=== PATIENT | female | born 1995 | race Two or more races ===

== ENCOUNTER 2025-02-21 | Inpatient (IN) | payer MEDICAID ==
[~2025-02-21] VITALS: Ht 198.1 cm; Wt 111.8 kg
--- NOTE | 2025-02-21 00:26 | ED.PDOC ---
GI ASSESSMENT HPI Comments 29 year old female with a Hx of a prior Ectopic in 2020 presents to the ED for the c/c of LLQ ABD pain. Pt states that her ABD pain started 1xday ago and radiated to her lower back with no alleviating factors at this time. Pt notes her pain 03/23. Pt notes he has had her Menstrual period 2x weeks ago. No other associated symptoms, modifiers, recent injuries or sick contacts present at this time. Chief Complaint: Abdominal Pain Time Seen by MD: 00:20 Reviewed Notes: Nurses Notes, Medications, Allergies Allergies: Coded Allergies: NO KNOWN ALLERGIES (Unverified , 02/21/25) Information Source: Patient Mode of Arrival: Ambulatory Timing: Days Duration: Since onset, Days Prehospital treatment: None Quality: Aching Vomitus: None Stool: Normal Severity: Moderate Recent: None Recent Hx of: Other (Ectopic ) Pain Location: LLQ Modifying Factors: Movement Associated sign and symptoms: None Vital Signs Vital Signs Date Time Temp Pulse Resp B/P (MAP) Pulse Ox O2 Delivery O2 Flow Rate FiO2 02/21/25 00:10 98.6 91 18 109/69 (82) 97 98.6 Physical Exam General: Awake, alert and oriented. No acute distress. Skin: Skin in warm, dry and intact. Appropriate color for ethnicity. HEENT: The head is normocephalic and atraumatic. Conjunctivae are clear without exudates or hemorrhage. Sclera is non-icteric. EOM are intact. No signs of nystagmus. Eyelids are normal in appearance without swelling or lesions. Oral mucosa is pink and moist Neck: The neck is supple with normal range of motion. No JVD. Cardiac: Heart rate and rhythm are normal. No murmurs, gallops, or rubs are auscultated. Respiratory: No signs of respiratory distress. Lung sounds are clear in all lobes bilaterally without rales, rhonchi, or wheezes. Abdominal: Abdomen is soft, non-tender without distention, guarding or rigidity. Bowel sounds are present and normoactive in all four quadrants. LLQ ABD pain th at radiated to the lower back. Extremities: Upper and lower extremities are atraumatic in appearance without deformity or edema. Neurological: The patient is awake, alert and oriented to person, place, and time with normal speech. Speech is clear. There is no facial asymmetry. Psychiatric: Appropriate mood and affect. Good judgement and insight. Review of Systems: REVIEW OF SYSTEMS: No fever, no chills, or fatigue HEENT: No sore throat, no earache, no congestion, no neck pain. Cardiac: No chest pain. No palpitations. Lungs: No shortness of breath, no cough. GI: No nausea, no vomiting, no diarrhea, no constipation, + LLQ abdominal pain : No dysuria, frequency, or urgency. No hematuria. Musculoskeletal: No joint pain , no joint swelling, no extremity edema, + back pain Skin: No rash, no itching. Neuro: No headache, no dizziness, no weakness Was a procedure done? Was a procedure done?: No GI differential Dx Differential Diagnosis: Bowel Obstruction, Constipation, Diverticular disease, Urolithiasis, , Kidney Stone X-Ray, Labs, Meds, VS Vital Signs Date Time Temp Pulse Resp B/P (MAP) Pulse Ox O2 Delivery O2 Flow Rate FiO2 02/21/25 00:10 98.6 91 18 109/69 (82) 97 98.6 Lab Test 02/21/25 02:40 02/21/25 00:37 02/21/25 00:10 Range/Units Lactic Acid Level 0.8 0.4-2.0 mmol/L Beta HCG, Quantitative 0.5 L 1.5-4.2 mIU/mL White Blood Count 12.5 H 4.4-10.8 10^3/uL Red Blood Count 4.33 4.0-5.20 10^6/uL Hemoglobin 12.1 L 12.2-16.2 g/dL Hematocrit 35.8 L 36.0-46.0 % Mean Corpuscular Volume 82.7 80.0-100.0 fL Mean Corpuscular Hemoglobin 27.9 L 28.0-32.0 pg Mean Corpuscular Hemoglobin Concent 33.8 32.0-36.0 g/dL Red Cell Distribution Width 14.6 H 11.8-14.3 % Platelet Count 358 140-450 10^3/uL Mean Platelet Volume 8.3 6.9-10.8 fL Neutrophils (%) (Auto) 59.6 37.0-80.0 % Lymphocytes (%) (Auto) 30.9 10.0-50.0 % Monocytes (%) (Auto) 6.4 0.0-12.0 % Eosinophils (%) (Auto) 2.7 0.0-7.0 % Basophils (%) (Auto) 0.4 0.0-2.0 % Neutrophils # (Auto) 7.4 1.6-8.6 10 ^3/uL Lymphocytes # (Auto) 3.9 0.4-5.4 10 ^3/uL Monocytes # (Auto) 0.8 0-1.3 10 ^3/uL Eosinophils # (Auto) 0.3 0-0.8 10 ^3/uL Basophils # (Auto) 0 0-0.2 10 ^3/uL Nucleated Red Blood Cells 0.2 % Sodium Level 139 136-145 mmol/L Potassium Level 3.9 3.5-5.1 mmol/L Chloride Level 104 98-107 mmol/L Carbon Dioxide Level 28 20-31 mmol/L Anion Gap 7 5-15 Blood Urea Nitrogen 9 9-23 mg/dL Creatinine 0.74 0.550-1.02 mg/dL Glomerular Filtration Rate Calc 114 >90 mL/min BUN/Creatinine Ratio 12.2 10.0-20.0 Serum Glucose 109 H 74-106 mg/dL Hemoglobin A1c 5.7 <5.7 % A1C Calcium Level 9.1 8.7-10.4 mg/dL Triglycerides Level 178 H < 150 mg/dL Cholesterol Level 173 < 200 mg/dL LDL Cholesterol 112 H < 100 mg/dL HDL Cholesterol 37 L 40-59 mg/dL Lipase 34 12-53 U/L Urine Color Light-yellow Yellow Urine Clarity Clear Clear Urine pH 6.0 5.0-9.0 Urine Specific Allen 1.012 1.001-1.035 Urine Protein Negative Negative Urine Ketones Negative Negative Urine Blood Negative Negative /uL Urine Nitrite Negative Negative Urine Bilirubin Negative Negative Urine Urobilinogen Normal Negative mg/dL Urine Leukocyte Esterase Negative Negative /uL Urine RBC 1 0 - 4 /hpf Urine Microscopic WBC 1 0-5 /HPF Urine Squamous Epithelial Cells Few <5 /hpf Urine Bacteria None seen None Seen /hpf Urine Glucose Normal Normal mg/dL Urine Test Negative Negative Urine Opiates Screen Neg NEGATIVE Urine Fentanyl Screen Neg NEGATIVE Urine Barbiturates Screen Neg NEGATIVE Urine Phencyclidine Screen Neg NEGATIVE Urine Amphetamines Screen Neg NEGATIVE Urine Benzodiazepines Screen Neg NEGATIVE Urine Cocaine Screen Neg NEGATIVE Urine Cannabinoids Screen Neg NEGATIVE Chlamydia trachomatis (KIMMY) Negative Negative Neisseria gonorrhoeae (KIMMY) Negative Negative PATIENT: ALEJANDRO IRAHETA ACCT: [id number] UNIT: [id number] : 1995 LOC: ER ROOM / BED: / AGE / SEX: 29 / F ADM STATUS: REG ER SERVICE 0110 ORDERING PHYSICIAN: XENA MORGAN MD PROCEDURE(s): ABPL - CT AB PEL WO CON-NO ORAL OR IV REASON: LLQ pain ORDER NUMBER(s): [id number], ACCESSION NUMBER(s): [id number] Exam: CT CT AB PEL WO CON-NO ORAL OR IV History: LLQ pain Comparison Study: None Technique: Multidetector spiral CT of the abdomen was performed from lung bases to pubic symphysis. Imaging was performed without IV contrast. Axial, coronal and sagittal multiplanar reformats were obtained from the axial data set by the technologist. Radiation Dose : 1. Abdomen/Pelvis: CTDIvol 22.16 mGy, DLP 1364.52 mGy*cm. Findings: Evaluation of solid organs is limited due to lack of intravenous contrast use. Lung Bases: No acute or significant lung base finding. Normal heart size. No pleural or pericardial effusion. Liver: The liver is enlarged, measuring 24.5 cm in craniocaudal dimension. Diffuse hepatic steatosis. No focal lesions. Gallbladder and Biliary Tree: Unremarkable Spleen: Unremarkable Pancreas: The pancreas is grossly normal in appearance. Adrenal Glands: Unremarkable Kidneys: Kidneys are grossly normal without calculi or hydronephrosis. Bladder: Grossly unremarkable for degree of distention. Bowel: The stomach is grossly normal in appearance. Small bowel and colon are normal in caliber and distribution. The appendix is mildly dilated distally, in diameter, with a wall thickness hyperdense material within the distal appendiceal lumen may represent a small appendicolith. Ascites: Absent Lymphadenopathy: Conspicuous, mildly enlarged right lower quadrant mesenteric lymph nodes measuring up to 8 mm in short axis dimension. Abdominal Wall and Mesentery: Unremarkable. Vasculature: The visualized abdominal aorta is normal in size and caliber. Evaluation of abdominal and pelvic vessels is limited due to lack of intravenous contrast. Pelvic Organs: Unremarkable Musculoskeletal: No aggressive focal bony lesions, acute fractures or dislocation. IMPRESSION: 1. Abnormal appendix suspicious for uncomplicated acute appendicitis. 2. Conspicuous mildly enlarged right lower quadrant mesenteric lymph nodes. 3. Hepatomegaly and hepatic steatosis. Critical Result: Acute appendicitis Findings discussed with XENA MORGAN at 02/21/2025 01:56 AM, and acknowledged receipt and understanding of the findings. Radiation optimization: All CT scans at this facility use at least one of these dose optimization techniques: automated exposure control mA and/or kV adjustment per patient size (includes targeted exams where dose is matched to clinical indication) or iterative reconstruction. Time of 1ST Reevaluation: 00:51 Reevaluation 1ST: Unchanged Patient Education/Counseling: Need For Follow Up Family Education/Counseling: No Family Present Sepsis Sepsis Reasesment Focused Exam Orders: Laboratory Tests 02/21/25 02:40: Lactic Acid Level 0.8 Departure 1 Departure Time of Disposition: 02:47 Impression: Primary Impression: Appendicitis Disposition: ADMITTED INPATIENT Condition: Stable Comments 29-year-old female who presented with abdominal pain, left lower quadrant. CT scan shows Abnormal appendix suspicious for uncomplicated acute appendicitis. Discussed with Dr. Chavez at 2:50 a.m. Antibiotics initiated in the emergency department Patient admitted to hospitalist service for further treatment, evaluation and monitoring. Critical Care Note Critical Care Time?: No Stability Stability form required: No Heart Score Heart Score: Heart Score Response (Comments) Value History N/A 0 EKG N/A 0 Age N/A 0 Risk Factors N/A 0 Troponin N/A 0 Total 0 I personally scribed for XENA MORGAN MD ([email or web address]) on 02/21/25 at 00:25. Electronically submitted by Esdras Love ([email or web address]). I personally scribed for XENA MORGAN MD ([email or web address]) on 02/21/25 at 02:29. Electronically submitted by Esdras Love ([email or web address]). XENA MORGAN MD Feb 21, 2025 00:25
[2025-02-21 00:53] LABS: Urine Bacteria None Seen /hpf (None Seen)
[2025-02-21 00:54] LABS: Basophils # (auto) 0 10 ^3/uL (0-0.2); Basophils % (auto) 0.4 % (0.0-2.0); Eosinophils # (auto) 0.3 10 ^3/uL (0-0.8); Eosinophils % (auto) 2.7 % (0.0-7.0); Hematocrit 35.8 % (36.0-46.0); Hemoglobin 12.1 g/dL (12.2-16.2); Lymphocytes # (auto) 3.9 10 ^3/uL (0.4-5.4); Lymphocytes % (auto) 30.9 % (10.0-50.0); Mean Corpuscular Hemoglobin 27.9 pg (28.0-32.0); Mean Corpuscular Hgb Conc. 33.8 g/dL (32.0-36.0); Mean Corpuscular Volume 82.7 fL (80.0-100.0); Monocytes # (auto) 0.8 10 ^3/uL (0-1.3); Monocytes % (auto) 6.4 % (0.0-12.0); Neutrophils # (auto) 7.4 10 ^3/uL (1.6-8.6); Neutrophils % (auto) 59.6 % (37.0-80.0); Nucleated Red Blood Cells % 0.2 %; Platelet Count (auto) 358 10^3/uL (140-450); Red Blood Cells 4.33 10^6/uL (4.0-5.20); Red Cell Distribution Width 14.6 % (11.8-14.3); White Blood Cell 12.5 10^3/uL (4.4-10.8)
[2025-02-21 01:00] LABS: Chloride 104 mmol/L (98-107); Potassium 3.9 mmol/L (3.5-5.1); Sodium 139 mmol/L (136-145)
[2025-02-21 01:01] LABS: Anion Gap 7 (5-15); Calcium 9.1 mg/dL (8.7-10.4); Carbon Dioxide 28 mmol/L (20-31)
[2025-02-21 01:04] LABS: Urine Blood Negative /uL (Negative); Urine Clarity Clear (Clear); Urine Color Light-Yellow (Yellow); Urine Protein, UAD Negative (Negative); Urine Specific Gravity 1.012 (1.001-1.035); Urine Squamous Epithelial Cell FEW /hpf (<5); Urine Urobilinogen Normal (Negative); Urine WBC 1 /HPF (0-5)
[2025-02-21 01:06] LABS: BUN/Creatinine Ratio 12.2 (10.0-20.0); Blood Urea Nitrogen 9 mg/dL (9-23); Glucose 109 mg/dL (74-106); Lipase 34 U/L (12-53)
--- NOTE | 2025-02-21 02:02 | DVH ---
Exam: CT CT AB PEL WO CON-NO ORAL OR IV History: LLQ pain Comparison Study: None Technique: Multidetector spiral CT of the abdomen was performed from lung bases to pubic symphysis. I maging was performed without IV contrast. Axial, coronal and sagittal multiplanar reformats were obta ined from the axial data set by the technologist. Radiation Dose : 1. Abdomen/Pelvis: CTDIvol 22.16 mGy, DLP 1364.52 mGy*cm. Findings: Evaluation of solid organs is limited due to lack of intravenous contrast use. Lung Bases: No acute or significant lung base finding. Normal heart size. No pleural or pericardial effusion. Liver: The liver is enlarged, measuring 24.5 cm in craniocaudal dimension. Diffuse hepatic steatosis. No focal lesions. Gallbladder and Biliary Tree: Unremarkable Spleen: Unremarkable Pancreas: The pancreas is grossly normal in appearance. Adrenal Glands: Unremarkable Kidneys: Kidneys are grossly normal without calculi or hydronephrosis. Bladder: Grossly unremarkable for degree of distention. Bowel: The stomach is grossly normal in appearance. Small bowel and colon are normal in caliber and d istribution. The appendix is mildly dilated distally, in diameter, with a wall thickness hyperdense m aterial within the distal appendiceal lumen may represent a small appendicolith. Ascites: Absent Lymphadenopathy: Conspicuous, mildly enlarged right lower quadrant mesenteric lymph nodes measuring u p to 8 mm in short axis dimension. Abdominal Wall and Mesentery: Unremarkable. Vasculature: The visualized abdominal aorta is normal in size and caliber. Evaluation of abdominal a nd pelvic vessels is limited due to lack of intravenous contrast. Pelvic Organs: Unremarkable Musculoskeletal: No aggressive focal bony lesions, acute fractures or dislocation. IMPRESSION: 1. Abnormal appendix suspicious for uncomplicated acute appendicitis. 2. Conspicuous mildly enlarged right lower quadrant mesenteric lymph nodes. 3. Hepatomegaly and hepatic steatosis. Critical Result: Acute appendicitis Findings discussed with XENA MORGAN at 02/21/2025 01:56 AM, and acknowledged receipt and understa nding of the findings. Radiation optimization: All CT scans at this facility use at least one of these dose optimization hans hniques: automated exposure control mA and/or kV adjustment per patient size (includes targeted exam s where dose is matched to clinical indication) or iterative reconstruction.
[2025-02-21] MEDS ORDERED: ACETAMINOPHEN 325 MG TAB PO PRN (03:00)
[2025-02-21 03:06] VITALS: PULSE 81; RESP 18; O2SAT 98
[2025-02-21 03:14] LABS: Amphetamine Screen, Urine Neg (NEGATIVE); Barbiturate Scree,Urine Neg (NEGATIVE); Benzodiazephine Screen, Urine Neg (NEGATIVE); Cannabinoid Screen, Urine Neg (NEGATIVE); Cocaine Screen, Urine Neg (NEGATIVE); Opiate Scree,Urine Neg (NEGATIVE); Phencyclidine Screen, Urine Neg (NEGATIVE)
[2025-02-21] MEDS: ACETAMINOPHEN 500 MG TAB or CAP PO ONE (03:19)
[2025-02-21] MEDS: SODIUM CHLORIDE 0.9% 1,000 ML IV ONE (03:19)
[2025-02-21 03:34] LABS: Basophils # (auto) 0.1 10 ^3/uL (0-0.2); Basophils % (auto) 0.6 % (0.0-2.0); Eosinophils # (auto) 0.4 10 ^3/uL (0-0.8); Eosinophils % (auto) 2.8 % (0.0-7.0); Hematocrit 36.3 % (36.0-46.0); Hemoglobin 11.9 g/dL (12.2-16.2); Lymphocytes # (auto) 4.3 10 ^3/uL (0.4-5.4); Lymphocytes % (auto) 31.8 % (10.0-50.0); Mean Corpuscular Hemoglobin 27.5 pg (28.0-32.0); Mean Corpuscular Hgb Conc. 32.9 g/dL (32.0-36.0); Mean Corpuscular Volume 83.5 fL (80.0-100.0); Monocytes # (auto) 0.7 10 ^3/uL (0-1.3); Monocytes % (auto) 5.4 % (0.0-12.0); Neutrophils % (auto) 59.4 % (37.0-80.0); Platelet Count (auto) 363 10^3/uL (140-450); Red Blood Cells 4.34 10^6/uL (4.0-5.20); Red Cell Distribution Width 14.8 % (11.8-14.3); White Blood Cell 13.5 10^3/uL (4.4-10.8)
[2025-02-21] MEDS: PIPERACILLIN-TAZOB 3.375GM 100 ML IV ONE (03:40)
[2025-02-21 03:46] LABS: Alanine Aminotransferase 30 U/L (7-40); Albumin 4.3 g/dL (3.2-4.8); Alkaline Phosphatase 110 U/L (46-116); Anion Gap 8 (5-15); BUN/Creatinine Ratio 11.3 (10.0-20.0); Carbon Dioxide 27 mmol/L (20-31); Chloride 103 mmol/L (98-107); Potassium 3.9 mmol/L (3.5-5.1); Sodium 138 mmol/L (136-145); Total Protein 7.7 g/dL (5.7-8.2)
[2025-02-21 03:47] LABS: Bilirubin, Total 0.3 mg/dL (0.2-1.0)
--- NOTE | 2025-02-21 03:53 | DVHHPRES ---
History of Present Illness Resident Creating Document: LARON MO History of Present Illness This is a 29-year-old female with past medical ectopic in 2020 that ended up on laparoscopic left-sided salpingectomy, patient also reports recently visiting rheumatology due to joint pains and ANAs where positive but has no diagnosis yet. Patient does not take medications at home. The patient presented to the ED with chief complaint of left lower quadrant pain more towards the pelvis. Patient states that the pain started today before coming to the ED and described the pain as crampy/sharp in nature rated as 7/10 on the pain scale that is localized in the left-sided pelvis/left lower quadrant that radiates towards the left lower back. The patient also reports that lying down or leaning forward worsens the intensity of the pain. The patient states that eating does not affect the intensity of the pain. The patient denies chest pain , shortness of breath, fever/chills, nausea or vomiting or any other associated symptoms. Patient reports that last menstrual period was two weeks ago which was consistent with minimal bleeding. Initial labs showed a WBC of 12.5, hemoglobin of 12.1. BMP was grossly normal lipase was normal range. The scan of the abdomen and pelvis showed abnormal appendix suspicious for uncomplicated acute appendicitis, there was also mildly enlarged right lower quadrant mesenteric lymph nodes and hepatic steatosis. My examination, patient has left lower quadrant tenderness to palpation that is more towards the left-sided pelvic region. McBurney was negative and Zuniga score was two points for unlikely appendicitis. We still consulted surgery for further assessment and we will admit the patient. Past medical history: Ectopic in 2020, rheumatologic disease (no diagnosis yet). Home medications: Denies Surgical history: Laparoscopic left-sided salpingectomy Social history: Denies alcohol intake, smoking and denies any drug intake. Patient lives with family Past Surgical History: Other (Left-sided laparoscopic salpingectomy) Family History: None Smoke: No ALCOHOL: none Drugs: None Lives: with Family Domestic Violence: Neg Review of Systems Constitutional: No: Fever, Chills, Sweats, Weakness, Malaise, Other Eyes: No: Pain, Vision change, Conjunctivae inflammation, Eyelid inflammation, Other, Redness ENT: No: Ear pain, Ear discharge, Nose pain, Nose discharge, Nose congestion, Mouth pain, Mouth swelling, Throat pain, Throat swelling, Other Respiratory: No: Cough, Dry, Shortness of breath, SOB with excertion, Wheezing, Hemoptysis, Pleuritic Pain, Sputum, Wheezing, Other Cardiovascular: No: Chest Pain, Palpitations, Orthopnea, Paroxysmal Noc. Dyspnea, Edema, Lt Headedness, Other Gastrointestinal: Abdominal Pain, Other (Left-sided pelvic pain to palpation.); No: Nausea, Vomiting, Diarrhea, Constipation, Melena, Hematochezia Genitourinary: No Dysuria, No Frequency, No Incontinence, No Hematuria, No Retention, No Other Musculoskeletal: No: other, neck pain, shoulder pain, arm pain, back pain, hand pain, leg pain, foot pain Skin: No: Rash, Lesions, Jaundice, Bruising, Other Neurological: No: Weakness, Numbness, Incoordination, Change in speech, Confusion, Seizures, Other Allergies: Coded Allergies: NO KNOWN ALLERGIES (Unverified , 02/21/25) Medications Current Medications Medications Dose Ordered Sig/Nathaniel Route Start Time Stop Time Status Last Admin Dose Admin Sodium Chloride 1,000 ml @ 60 mls/hr [id number] IV 02/21/25 03:00 Acetaminophen 650 mg Q6HP PRN PO 02/21/25 03:00 Exam Vital Signs Vital Signs Date Time Temp Pulse Resp B/P (MAP) Pulse Ox O2 Delivery O2 Flow Rate FiO2 02/21/25 00:10 98.6 91 18 109/69 (82) 97 98.6 General Appearance: Alert, Oriented X3, Cooperative, No acute distress HEENT: Atraumatic, PERRLA, EOMI, Mucous membr. moist/pink Respiratory: Clear to auscultation, Normal air movement Cardiovascular: Regular rate, Normal S1, Normal S2, No murmurs Abdominal: Normal bowel sounds, Soft, No tenderness, No hepatospenomegaly Extremities: No clubbing, No cyanosis, No edema, Normal pulses, No tenderness/swelling Skin: No rashes, No breakdown, No significant lesion Neuro: Normal gait, Normal speech, Strength at 5/5 X4 ext, Normal tone, Sensation intact, Cranial nerves 3-12 NL, Reflexes 2+ Psych/Mental Status: Mental status NL, Mood NL Labs/Xrays Labs Test 02/21/25 02:40 02/21/25 00:37 02/21/25 00:10 Range/Units White Blood Count 12.5 H 4.4-10.8 10^3/uL Red Blood Count 4.33 4.0-5.20 10^6/uL Hemoglobin 12.1 L 12.2-16.2 g/dL Hematocrit 35.8 L 36.0-46.0 % Mean Corpuscular Volume 82.7 80.0-100.0 fL Mean Corpuscular Hemoglobin 27.9 L 28.0-32.0 pg Mean Corpuscular Hemoglobin Concent 33.8 32.0-36.0 g/dL Red Cell Distribution Width 14.6 H 11.8-14.3 % Platelet Count 358 140-450 10^3/uL Mean Platelet Volume 8.3 6.9-10.8 fL Neutrophils (%) (Auto) 59.6 37.0-80.0 % Lymphocytes (%) (Auto) 30.9 10.0-50.0 % Monocytes (%) (Auto) 6.4 0.0-12.0 % Eosinophils (%) (Auto) 2.7 0.0-7.0 % Basophils (%) (Auto) 0.4 0.0-2.0 % Neutrophils # (Auto) 7.4 1.6-8.6 10 ^3/uL Lymphocytes # (Auto) 3.9 0.4-5.4 10 ^3/uL Monocytes # (Auto) 0.8 0-1.3 10 ^3/uL Eosinophils # (Auto) 0.3 0-0.8 10 ^3/uL Basophils # (Auto) 0 0-0.2 10 ^3/uL Nucleated Red Blood Cells 0.2 % Sodium Level 139 136-145 mmol/L Potassium Level 3.9 3.5-5.1 mmol/L Chloride Level 104 98-107 mmol/L Carbon Dioxide Level 28 20-31 mmol/L Anion Gap 7 5-15 Blood Urea Nitrogen 9 9-23 mg/dL Creatinine 0.74 0.550-1.02 mg/dL Glomerular Filtration Rate Calc 114 >90 mL/min BUN/Creatinine Ratio 12.2 10.0-20.0 Serum Glucose 109 H 74-106 mg/dL Calcium Level 9.1 8.7-10.4 mg/dL Lipase 34 12-53 U/L Urine Color Light-yellow Yellow Urine Clarity Clear Clear Urine pH 6.0 5.0-9.0 Urine Specific Michael 1.012 1.001-1.035 Urine Protein Negative Negative Urine Ketones Negative Negative Urine Blood Negative Negative /uL Urine Nitrite Negative Negative Urine Bilirubin Negative Negative Urine Urobilinogen Normal Negative mg/dL Urine Leukocyte Esterase Negative Negative /uL Urine RBC 1 0 - 4 /hpf Urine Microscopic WBC 1 0-5 /HPF Urine Squamous Epithelial Cells Few <5 /hpf Urine Bacteria None seen None Seen /hpf Urine Glucose Normal Normal mg/dL Urine Test Negative Negative Assessment/Plan Assessment/Plan Assessment/plan Acute left lower quadrant abdominal pain, Possible early appendicitis Possible acute diverticulitis Possible adhesions? Ruled out /Ectopic Ruled out pancreatitis -Zuniga score 2 points, unlikely appendicitis. Physical exam: - mcburney, no rebound tenderness, no fever, no RLQ pain. -Urine test negative, Bhcg low. -Ordered pelvic US -Consulted surgery -Start IV zosyn -Start IV fluids -NPO -Ordered STD (chlamydia, gonorrhea, syphilis) Goals of care discussed with the patient at bedside for >35min, FULL CODE Plan discussed with Dr. Brar Plan discussed with: Patient My Orders Orders - LARON MO Procedure Category Date Status Time Complete Blood Count LAB 02/21/25 Logged 04:00 Comprehensive LAB 02/21/25 Logged Metabolic Panel 04:00 Lactic Acid W/ Reflex LAB 02/21/25 In Process Order 02:31 Beta Hcg, Quantitative LAB 02/21/25 In Process 02:31 Drug Screen LAB 02/21/25 In Process 02:31 Admit ADMIT 02/21/25 Transmitted 02:55 Code Status CODE 02/21/25 Transmitted 02:55 Vital Signs CHRISTIAN 02/21/25 In Process 02:55 Review Orders With CHRISTIAN 02/21/25 In Process Adm. 02:55 Encourage Activity As CHRISTIAN 02/21/25 In Process Tolerate 02:55 Npo (Nothing By DIET 02/21/25 Transmitted Mouth) Diet Breakfast Sodium Chloride 0.9% PHA 02/21/25 Logged 03:00 Acetaminophen Tablet PHA 02/21/25 Logged (Tylenol Tablet) 03:00 Notify Of Changes CHRISTIAN 02/21/25 In Process From Base 02:55 Advance Directive CHRISTIAN 02/21/25 In Process 02:55 Lipid Panel LAB 02/21/25 In Process 02:55 Patient Condition ORDERS 02/21/25 Transmitted 02:55 Allergies CHRISTIAN 02/21/25 In Process 02:55 Hemoglobin A1c LAB 02/21/25 In Process 02:55 Pelvic US 02/21/25 Logged 02:58 Date of Service: Feb 21, 2025 Billing Provider: LARON MO Common Visit Codes: 67223-[id number] INP/OBS CARE (HIGH) Secondary Visit Codes: 52123-[id number] CARE PLAN 30 MINUTES LARON MO RESIDENT Feb 21, 2025 03:53
[2025-02-21] MEDS: SODIUM CHLORIDE 0.9% 1,000 ML IV SCH ×2 (03:55→09:46)
[2025-02-21 03:56] LABS: Blood Urea Nitrogen 8 mg/dL (9-23); Glucose 122 mg/dL (74-106)
[2025-02-21 04:34] LABS: Cholesterol 173 mg/dL (< 200); HDL Cholesterol 37 mg/dL (40-59); LDL Cholesterol 112 mg/dL (< 100); Triglycerides 178 mg/dL (< 150)
[2025-02-21 05:03] LABS: Aspartate Aminotransferase 22 U/L (13-40)
--- NOTE | 2025-02-21 07:14 | DVH ---
CLINICAL HISTORY: left sided pelvic pain COMPARISON: Same day CT of the abdomen and pelvis. TECHNIQUE: Transvaginal and transabdominal grayscale sonographic imaging of the uterus and ovaries wa s performed, assisted by color Doppler technique. Duplex Doppler ultrasound of both ovaries was also performed. FINDINGS: Examination is somewhat limited due to the patient's clinical condition. The patient is nancy ble to tolerate transducer pressure due to the pain. The uterus measures 8.1 x 5.6 x 4.4 cm. There is homogeneous echogenicity. Endometrial thickness measures 1.7 cm, slightly above the upper limits of normal for premenopausal. Nabothian cyst in the cervix measures up to 0.8 cm. Small amount of free fl uid in the cul-de-sac. Neither ovary is visualized. IMPRESSION: 1. Limited examination for the reasons described above. Neither ovary is visualized. 2. Small amount of free fluid in the cul-de-sac, likely physiologic. 3. Small nabothian cyst in the cervix. 4. Endometrial thickness measures slightly above the upper limits of normal for premenopausal.
[2025-02-21 07:40] VITALS: BP 95/48; PULSE 75; RESP 16; TEMP 97.5; O2SAT 95
[2025-02-21 09:40] VITALS: BP 95/48; PULSE 75; RESP 16; TEMP 97; O2SAT 95
[2025-02-21] MEDS: PIPERACILLIN-TAZOB 3.375GM 100 ML IV SCH (11:52)
--- NOTE | 2025-02-21 15:54 | DVHDSRES ---
Discharge Summary Date of Admission Resident Creating Document: LETHA DAVE RESIDENT Feb 21, 2025 at 02:55 Date of Discharge: Feb 21, 2025 Admitting Diagnosis Intractable abdominal pain Labs/Diagnostic Data: Laboratory Results Test 02/21/25 03:17 02/21/25 02:40 02/21/25 00:37 02/21/25 00:10 White Blood Count 13.5 10^3/uL (4.4-10.8) Red Blood Count 4.34 10^6/uL (4.0-5.20) Hemoglobin 11.9 g/dL (12.2-16.2) Hematocrit 36.3 % (36.0-46.0) Mean Corpuscular Volume 83.5 fL (80.0-100.0) Mean Corpuscular Hemoglobin 27.5 pg (28.0-32.0) Mean Corpuscular Hemoglobin Concent 32.9 g/dL (32.0-36.0) Red Cell Distribution Width 14.8 % (11.8-14.3) Platelet Count 363 10^3/uL (140-450) Mean Platelet Volume 8.4 fL (6.9-10.8) Neutrophils (%) (Auto) 59.4 % (37.0-80.0) Lymphocytes (%) (Auto) 31.8 % (10.0-50.0) Monocytes (%) (Auto) 5.4 % (0.0-12.0) Eosinophils (%) (Auto) 2.8 % (0.0-7.0) Basophils (%) (Auto) 0.6 % (0.0-2.0) Neutrophils # (Auto) 8.0 10 ^3/uL (1.6-8.6) Lymphocytes # (Auto) 4.3 10 ^3/uL (0.4-5.4) Monocytes # (Auto) 0.7 10 ^3/uL (0-1.3) Eosinophils # (Auto) 0.4 10 ^3/uL (0-0.8) Basophils # (Auto) 0.1 10 ^3/uL (0-0.2) Nucleated Red Blood Cells 0.0 % Sodium Level 138 mmol/L (136-145) Potassium Level 3.9 mmol/L (3.5-5.1) Chloride Level 103 mmol/L (98-107) Carbon Dioxide Level 27 mmol/L (20-31) Anion Gap 8 (5-15) Blood Urea Nitrogen 8 mg/dL (9-23) Creatinine 0.71 mg/dL (0.550-1.02) Glomerular Filtration Rate Calc 119 mL/min (>90) BUN/Creatinine Ratio 11.3 (10.0-20.0) Serum Glucose 122 mg/dL (74-106) Calcium Level 9.0 mg/dL (8.7-10.4) Total Bilirubin 0.3 mg/dL (0.2-1.0) Aspartate Amino Transferase (AST) 22 U/L (13-40) Alanine Aminotransferase (ALT) 30 U/L (7-40) Alkaline Phosphatase 110 U/L (46-116) Total Protein 7.7 g/dL (5.7-8.2) Albumin 4.3 g/dL (3.2-4.8) Lactic Acid Level 0.8 mmol/L (0.4-2.0) Beta HCG, Quantitative 0.5 mIU/mL (1.5-4.2) Hemoglobin A1c 5.7 % A1C (<5.7) Triglycerides Level 178 mg/dL (< 150) Cholesterol Level 173 mg/dL (< 200) LDL Cholesterol 112 mg/dL (< 100) HDL Cholesterol 37 mg/dL (40-59) Lipase 34 U/L (12-53) Urine Color Light-yellow (Yellow) Urine Clarity Clear (Clear) Urine pH 6.0 (5.0-9.0) Urine Specific Colbert 1.012 (1.001-1.035) Urine Protein Negative (Negative) Urine Ketones Negative (Negative) Urine Blood Negative /uL (Negative) Urine Nitrite Negative (Negative) Urine Bilirubin Negative (Negative) Urine Urobilinogen Normal mg/dL (Negative) Urine Leukocyte Esterase Negative /uL (Negative) Urine RBC 1 /hpf (0 - 4) Urine Microscopic WBC 1 /HPF (0-5) Urine Squamous Epithelial Cells Few /hpf (<5) Urine Bacteria None seen /hpf (None Seen) Urine Glucose Normal mg/dL (Normal) Urine Test Negative (Negative) Urine Opiates Screen Neg (NEGATIVE) Urine Fentanyl Screen Neg (NEGATIVE) Urine Barbiturates Screen Neg (NEGATIVE) Urine Phencyclidine Screen Neg (NEGATIVE) Urine Amphetamines Screen Neg (NEGATIVE) Urine Benzodiazepines Screen Neg (NEGATIVE) Urine Cocaine Screen Neg (NEGATIVE) Urine Cannabinoids Screen Neg (NEGATIVE) Other Laboratory Tests 02/21/25 03:17 Brief Hx & Hospital Course: HPI: 9-year-old female with past medical ectopic in 2020 that ended up on laparoscopic left-sided salpingectomy, patient also reports recently visiting rheumatology due to joint pains and ANAs where positive but has no diagnosis yet. Patient does not take medications at home. The patient presented to the ED with chief complaint of left lower quadrant pain more towards the pelvis. Patient states that the pain started today before coming to the ED and described the pain as crampy/sharp in nature rated as 7/10 on the pain scale that is localized in the left-sided pelvis/left lower quadrant that radiates towards the left lower back. The patient also reports that lying down or leaning forward worsens the intensity of the pain. The patient states that eating does not affect the intensity of the pain. The patient denies chest pain, shortness of breath, fever/chills, nausea or vomiting or any other associated symptoms. Patient reports that last menstrual period was two weeks ago which was consistent with minimal bleeding. Initial labs showed a WBC of 12.5, hemoglobin of 12.1. BMP was grossly normal lipase was normal range. The scan of the abdomen and pelvis showed abnormal appendix suspicious for uncomplicated acute appendicitis, there was also mildly enlarged right lower quadrant mesenteric lymph nodes and hepatic steatosis. My examination, patient has left lower quadrant tenderness to palpation that is more towards the left-sided pelvic region. McBurney was negative and Zuniga score was two points for unlikely appendicitis. We still consulted surgery for further assessment and we will admit the patient. Summary: CT scan of abdomen shows: Abnormal appendix suspicious for uncomplicated acute appendicitis. Conspicuous mildly enlarged right lower quadrant mesenteric lymph nodes. Hepatomegaly and hepatic steatosis. Pelvic ultrasound shows: Small amount of free fluid in the cul-de-sac, likely physiologic. Small nabothian cyst in the cervix. Patient was restarted IV antibiotic, Zosyn and IV fluid normal saline, pain management was initiated, and surgery was consulted. Patient leaved the hospital AMA, patient was counseled about her condition and necessity of continuing treatment, also explained the adverse effect of not having the treatment. Patient verbalized understanding and still wanted Leaved the hospital. Condition at Discharge: Guarded Final Diagnosis/Problems List Acute left lower quadrant abdominal pain, Possible early appendicitis Possible acute diverticulitis Possible adhesions secondary to previous surgery Ruled out /Ectopic Ruled out pancreatitis Discharge Disposition: AMA SNF Discharge Will this Physician continue t: No Discharge Statement: "Patient was advised to return to the ER or call 911 if any headaches, dizziness, shortness of breath, chest pain, abdominal pain, bleeding, fevers, or worsening of medical condition. Patient was counseled about treatment plan, medications, possible side effects, patientverbalized understanding. All questions were answered to the best of my ability. This discharge took greater then 30 minutes in planning, reviewing documentation, counseling the patient, and discussing with other team members." ASSESSMENT ASSESSMENT Assessment Date of Service: Feb 21, 2025 Billing Provider: RYAN BALLARD MD Common Visit Codes: 42271-AOO/OBS DISCH DAY >30min LETHA DAVE RESIDENT Feb 21, 2025 15:54 RYAN BALLARD MD Feb 21, 2025 21:42
[2025-02-23 01:06] LABS: Chlamydia Trachomatis, NAA Negative (Negative); Neisseria gonorrhoeae, NAA Negative (Negative)
== END 2025-02-21 12:22 | disposition left against medical advice (07) | DRG 244 ==
LOC: ER → OVERFLOW 02:55
PROVIDERS: ADMIT Internal Medicine Geriatric Medicine; ATTEND Emergency Medicine
DX: K57.92 Diverticulitis of intestine, part unspecified, without perforation or abscess without bleeding (principal); K76.0 Fatty (change of) liver, not elsewhere classified; K37 Unspecified appendicitis; K66.0 Peritoneal adhesions (postprocedural) (postinfection); Z53.29 Procedure and treatment not carried out because of patient's decision for other reasons
CPT/HCPCS: 36415; 74176; 76830; 76856; 80048; 80053; 80061; 80307; 81001; 81025; 83036; 83605; 83690; 84702; 85025; 96365; G0378; J2543